=== PATIENT | male | born 1995 | race African-American/Black ===

== ENCOUNTER 2021-01-16 00:46 | Emergency (ER) | payer OTHER ==
[2021-01-16] MEDS ORDERED: HYDROcodone/Acetaminophen 5/325 mg Tablet ONE (04:31)
[2021-01-16] MEDS ORDERED: Dexamethasone 10 MG/ML VIAL ONE ×2 (04:31→04:34)
== END 2021-01-16 05:01 | disposition home or self-care (01) ==
LOC: ERS 00:46
DX: J02.9 Acute pharyngitis, unspecified (principal)
CPT/HCPCS: 96372; 99282; J1100